=== PATIENT | female | born 1960 | race Caucasian/White ===

== ENCOUNTER 2020-01-28 12:57 | Outpatient (REF) | payer OTHER, SELFPAY ==
[2020-01-28 14:58] LABS: Alanine Aminotransferase 19 U/L (0-31); Aspartate Amino Transferase 20 U/L (5-31)
== END 2020-01-28 12:58 | disposition home or self-care (01) ==
LOC: HO.HMGCLDS 12:57
PROVIDERS: PCP Family Medicine; Visit Provider Family Medicine
DX: E78.00 Pure hypercholesterolemia, unspecified (principal); Z79.899 Other long term (current) drug therapy
CPT/HCPCS: 82550; 84450; 84460

== ENCOUNTER 2020-10-27 12:57 | Outpatient (REF) | payer OTHER, SELFPAY ==
[2020-10-27 14:47] LABS: Anion Gap 14 (12-20); Blood Urea Nitrogen 8 mg/dL (9-16); Carbon Dioxide 22 mmol/L (22-29); Chloride 105 mmol/L (96-108); Estimated Glomerular Filt Rate > 60; Potassium 3.9 mmol/L (3.3-5.1); Sodium 137 mmol/L (135-145)
== END 2020-10-27 12:58 | disposition home or self-care (01) ==
LOC: HO.HMGCLDS 12:57
PROVIDERS: PCP Family Medicine; Visit Provider Family Medicine
DX: E78.00 Pure hypercholesterolemia, unspecified (principal); I10 Essential (primary) hypertension
CPT/HCPCS: 36415; 80051; 82565; 84520

== ENCOUNTER 2021-09-19 12:40 | Outpatient (REF) | payer OTHER, SELFPAY ==
[2021-09-19 13:51] LABS: MANUAL DIFF FLAG NO
[2021-09-19 14:00] LABS: Appearance Urine CLEAR; Color Urine YELLOW; Glucose Urine UA NEG (NEG); Leukocyte Esterase Urine NEG (NEG); Nitrite Urine NEG (NEG); Specific Gravity - Urine <= 1.005 (1.005-1.025); Urine Blood TRACE (NEG); Urine Ketones NEG (NEG); Urine Protein NEG (NEG-TRACE)
[2021-09-19 14:03] LABS: Basophils Percent Auto 0.9 % (0-2); Eosinophils Absolute Auto 0.1 X10*3/uL (0.0-0.4); Eosinophils Percent Auto 2.6 % (0-4); Hematocrit 38.9 % (37.0-47.0); Hemoglobin 13.1 g/dl (12.0-16.0); Imm Gran Abs Auto 0.01 X10*3/uL (0.00-0.03); Imm Gran Pct Auto 0.2 % (0.0-0.4); Lymphocytes Percent Auto 43.3 % (20-40); Mean Corpuscular HGB Conc 33.7 g/dl (31.0-35.0); Mean Corpuscular Hemoglobin 32.3 pg (27.0-33.0); Mean Corpuscular Volume 95.8 fL (80.0-98.0); Mean Platelet Volume 10.9 fL (9.4-12.3); Monocytes Absolute Auto 0.3 X10*3/uL (0.1-1.2); Monocytes Percent Auto 7.5 % (2-11); Neutrophils Absolute Auto 2.1 x10*3/uL (2.0-8.3); Neutrophils Percent Auto 45.5 % (45-73); Platelet Count 231 X10*3/uL (160-400); Red Blood Count 4.06 X10*6/uL (4.20-5.50); Red Cell Distribution Width 12.5 % (11.0-16.0); White Blood Count 4.6 X10*3/uL (4.8-10.8)
[2021-09-19 14:14] LABS: Squamous Epithelial Cell Urine 1+ /LPF
[2021-09-19 14:15] LABS: RBC Urine 0-2 /HPF (0); WBC Urine 0 /HPF (0-4)
[2021-09-19 14:24] LABS: Alanine Aminotransferase 36 U/L (0-31); Albumin Level 4.3 g/dL (3.5-5.0); Alkaline Phosphatase 79 U/L (39-117); Amylase 30 U/L (28-100); Aspartate Amino Transferase 27 U/L (5-31); Bilirubin Direct 0.2 mg/dL (0.0-0.5); Bilirubin Total 0.5 mg/dL (0.0-1.0); Calcium 9.2 mg/dL (8.4-10.2); Lipase 14 U/L (8-78); Total Protein 6.9 g/dL (6.5-8.0)
[2021-09-19 14:48] LABS: Erythrocyte Sedimentation Rate 10 MM/HR (0-20)
== END 2021-09-19 12:41 | disposition home or self-care (01) ==
LOC: HO.10HDL 12:40
PROVIDERS: Visit Provider Family Medicine
DX: R10.13 Epigastric pain (principal); R11.2 Nausea with vomiting, unspecified; K21.9 Gastro-esophageal reflux disease without esophagitis
CPT/HCPCS: 36415; 80076; 81001; 81003; 82150; 82310; 83690; 85025; 85652

== ENCOUNTER 2021-09-20 08:22 | Outpatient (REF) | payer OTHER, SELFPAY | END 2021-09-20 08:23 | disposition home or self-care (01) | LOC: HO.10HDLNP 08:22 | PROVIDERS: Visit Provider Family Medicine | DX: R10.13 Epigastric pain (principal); R11.2 Nausea with vomiting, unspecified; K21.9 Gastro-esophageal reflux disease without esophagitis; Z11.0 Encounter for screening for intestinal infectious diseases | CPT/HCPCS: 87338 ==

== ENCOUNTER 2021-09-30 09:34 | Emergency (ER) | payer OTHER, SELFPAY ==
--- NOTE | ~2021-09-30 | CT_ITS ---
EXAMINATION: CT ABDOMEN AND PELVIS WITHOUT CONTRAST CLINICAL INFORMATION: abd pain, left flank pain COMPARISON: None TECHNIQUE: Multidetector volumetric imaging was performed from the superior aspect of the liver through the pubic symphysis. Sagittal and coronal reformatted images were obtained on the technologist's workstation. This CT examination was performed using dose optimization techniques as appropriate, variously including the following: *Automated exposure control *Adjustment of mA and/or kV according to patient size (this includes techniques or standardized protocols for targeted exams where dose is matched to indication/reason for exam; i.e. extremities or head) *Use of iterative reconstruction technique DLP: 601 mGy-cm FINDINGS: LUNG BASES: Trace pericardial fluid. Heart normal in size. The lung bases appear clear, with no evidence of inflammation or nodules. LIVER, GALLBLADDER, AND BILIARY TREE: The liver appears unremarkable in size, shape, and attenuation. No focal hepatic lesion or biliary ductal dilatation is appreciated. Unremarkable appearance of the gallbladder. PANCREAS: Unremarkable SPLEEN: Unremarkable ADRENAL GLANDS: Unremarkable KIDNEYS AND URETERS: The kidneys appear unremarkable in size, shape, and attenuation. 3 mm, nonobstructing right renal pelvic stone (image 32, series 3). No hydronephrosis, hydroureter, or other calculus seen. BLADDER: Unremarkable GASTROINTESTINAL TRACT: The small and large bowel appear unremarkable. No diverticulosis. Normal-appearing distal ileum and vermiform appendix. ABDOMINAL WALL: No significant hernia is appreciated. LYMPH NODES: No evidence of adenopathy by size criteria. VASCULAR: Unremarkable PELVIC VISCERA: Unremarkable OSSEOUS STRUCTURES: Unremarkable CT/CT abdomen pelvis wo con IMPRESSION: No acute finding.
[2021-09-30 10:02] VITALS: BP 167/98; PULSE 60; RESP 16; TEMP 35.5; O2SAT 98; BMI 25.0
[2021-09-30 10:35] LABS: Appearance Urine CLEAR; Color Urine YELLOW; Glucose Urine UA NEG (NEG); Leukocyte Esterase Urine TRACE (NEG); Nitrite Urine NEG (NEG); Specific Gravity - Urine 1.025 (1.005-1.025); UACC Culture Trigger NO; Urine Blood 1+ (NEG); Urine Ketones NEG (NEG); Urine Protein NEG (NEG-TRACE)
[2021-09-30 11:26] LABS: Squamous Epithelial Cell Urine 3+ /LPF
[2021-09-30 11:41] LABS: MANUAL DIFF FLAG NO
[2021-09-30 12:01] LABS: Basophils Absolute Auto 0.1 X10*3/uL (0.0-0.2); Basophils Percent Auto 0.9 % (0-2); Eosinophils Absolute Auto 0.1 X10*3/uL (0.0-0.4); Eosinophils Percent Auto 1.7 % (0-4); Hematocrit 39.4 % (37.0-47.0); Hemoglobin 13.1 g/dl (12.0-16.0); Imm Gran Abs Auto 0.02 X10*3/uL (0.00-0.03); Imm Gran Pct Auto 0.3 % (0.0-0.4); Lymphocytes Percent Auto 35.4 % (20-40); Mean Corpuscular HGB Conc 33.2 g/dl (31.0-35.0); Mean Corpuscular Hemoglobin 32.2 pg (27.0-33.0); Mean Corpuscular Volume 96.8 fL (80.0-98.0); Mean Platelet Volume 10.5 fL (9.4-12.3); Monocytes Absolute Auto 0.3 X10*3/uL (0.1-1.2); Monocytes Percent Auto 5.6 % (2-11); Neutrophils Absolute Auto 3.2 x10*3/uL (2.0-8.3); Neutrophils Percent Auto 56.1 % (45-73); Platelet Count 247 X10*3/uL (160-400); Red Blood Count 4.07 X10*6/uL (4.20-5.50); Red Cell Distribution Width 12.3 % (11.0-16.0); White Blood Count 5.8 X10*3/uL (4.8-10.8)
[2021-09-30 12:03] LABS: Anion Gap 12 (12-20); Blood Urea Nitrogen 7 mg/dL (9-16); Carbon Dioxide 22 mmol/L (22-29); Chloride 107 mmol/L (96-108); Creatinine Clr Calc Pharmacy 85.1; Estimated Glomerular Filt Rate > 60; Glucose Random 100 mg/dL (60-115); Lipase 11 U/L (8-78); Potassium 4.2 mmol/L (3.3-5.1); Sodium 137 mmol/L (135-145)
--- NOTE | 2021-09-30 18:04 | ED_ITS ---
HPI - Abdominal Pain General Chief Complaint: Abdominal Pain Stated Complaint: L Side Pain Time Seen by Provider: 09/30/21 13:36 Source: patient Mode of arrival: ambulatory Limitations: no limitations History of Present Illness HPI narrative: 61-year-old female presents for evaluation for left upper quadrant pain that started night. She states the pain is severe and prevents her from sleeping. She does not report fevers or chills, chest pain or pressure, palpitations, shortness of breath, pain on inspiration, nausea or vomiting, trauma or any injury. MD elicited complaint: abdominal pain Onset (ago): day(s) (3) Pain Consistency: constant and colicky Location: LUQ, L flank and groin Severity: moderate Pain scale (0-10): 8 Quality: stabbing and aching Exacerbating factors: movement Relieving factors: nothing Associated symptoms: denies other symptoms Related Data Previous Rx's Medication Instructions Recorded nitrofurantoin 100 mg PO Q12H 7 days #14 caps 09/30/21 monohydrate/macrocrystals 100 mg capsule (Macrobid) tamsulosin 0.4 mg capsule (Flomax) 0.4 mg PO DAILY 14 days #14 caps 09/30/21 Allergies Allergy/AdvReac Type Severity Reaction Status Date / Time No Known Allergies Allergy Verified 09/30/21 10:05 Review of Systems Review of Systems Constitutional: No Fever, No Chills ENT/Mouth: No sore throat Eyes: No Eye Pain, No Swelling, No Redness Cardiovascular: No Chest Pain, No SOB Respiratory: No Cough, No Sputum, No Wheezing Gastrointestinal: In a Nausea, no Vomiting, No Diarrhea, positive abdominal pain Genitourinary: No Dysuria, no urinary frequency, now Hematuria, positive Flank Pain, no hesitancy Musculoskeletal: No joint pain, No Myalgias Skin: No Skin Lesions, No rash Neuro: No Weakness, No Numbness, No Headache Psych: No Anxiety/Panic, No Depression Heme/Lymph: No Bruising, No Lymphadenopathy Endocrine: No Polyuria, No Polydipsia Yes all other systems are reviewed and are negative COUNTS INCLUDE 234 BEDS AT THE [facility] Past Medical History Attestation statement: The following information was validated with the patient. Source: old records reviewed Social History Social History Alcohol intake: current Alcohol intake frequency: a few times a week Alcohol type: beer and wine Patient Tobacco Use Status: Never used Tobacco Use of substances other than those prescribed or required for medical reasons: No Advance Directives: No Advance Directives Information Provided: No Physical Exam ED Vital Signs: Vital Signs - 24 hr 09/30/21 10:02 Temperature 95.9 F L Pulse Rate 60 Respiratory Rate 16 Blood Pressure 167/98 H Pulse Oximetry 98 Oxygen Delivery Method Room Air BMI result Body Mass Index 25.0 Appearance: Alert. Oriented X3. Moderate distress. Eyes: Pupils equal, round and reactive to light. Sclera nonicteric. ENT: Pharynx normal. Neck: Normal inspection. Neck supple. CVS: Normal heart rate and rhythm. Pulses normal. Respiratory: No respiratory distress. Breath sounds normal. Abdomen: Soft and left upper quadrant tenderness to palpation, left CVA tenderness noted. Skin: Skin warm and dry. Normal skin color. Normal skin turgor. Extremities: Moves all extremities against resistance. Neuro: No motor deficit. No sensory deficit. Cranial nerves 2-12 intact. Course Course Course Narrative: 61-year-old female presents for left upper quadrant abdominal pain. Has been in the emergency department waiting room for 7 hours. Labs and urinalysis drawn, positive for leukocyte esterase but no other concerning findings with lab values. States to have left upper quadrant, left-sided CVA tenderness, and a left groin pain. Will order CT scan of abdomen pelvis. Vital signs are stable within normal limits. Wells PE score 0. 18:15 this INFORMATICS MANAGER started IV to left AC. 1 L infusing by this INFORMATICS MANAGER. Order for Zofran, morphine and Toradol. 19:01 CT scan unremarkable for acute findings. Does show a kidney stone. will give flomax. Will treat with Macrobid for UTI. Patient verbalized understanding of and agrees plan care discharge home. Verbalized understanding of signs and symptoms indicating need for emergent intervention. MDM - Abdominal Pain Differential Diagnosis Differential diagnosis: Likely abdominal pain, calculus of kidney, constipation and diverticulitis Medical Records Attestation: I reviewed the patient's medical records. Lab Data Attestation: I reviewed the patient's lab results. Result diagrams: 09/30/21 11:37 09/30/21 11:37 Labs: Lab Results 09/30/21 09/30/21 09/30/21 Range/Units 10:17 11:37 11:37 WBC 5.8 (4.8-10.8) X10*3/uL RBC 4.07 L (4.20-5.50) X10*6/uL Hgb 13.1 (12.0-16.0) g/dl Hct 39.4 (37.0-47.0) % MCV 96.8 (80.0-98.0) fL MCH 32.2 (27.0-33.0) pg MCHC 33.2 (31.0-35.0) g/dl RDW 12.3 (11.0-16.0) % Plt Count 247 (160-400) X10*3/uL MPV 10.5 (9.4-12.3) fL Immature Gran % (Auto) 0.3 (0.0-0.4) % Neut % (Auto) 56.1 (45-73) % Lymph % (Auto) 35.4 (20-40) % Swift % (Auto) 5.6 (2-11) % Eos % (Auto) 1.7 (0-4) % Baso % (Auto) 0.9 (0-2) % Lymph # (Auto) 2.0 (1.2-4.9) X10*3/uL Swift # (Auto) 0.3 (0.1-1.2) X10*3/uL Eos # (Auto) 0.1 (0.0-0.4) X10*3/uL Baso # (Auto) 0.1 (0.0-0.2) X10*3/uL Abs Immat Gran (auto) 0.02 (0.00-0.03) X10*3/uL Absolute Neuts (auto) 3.2 (2.0-8.3) x10*3/uL Absolute Nucleated RBC 0.000 (0.0-0.012) X10*3/uL Nucleated RBC % (auto) 0.0 (0.0-0.2) /100WBC Sodium 137 (135-145) mmol/L Potassium 4.2 (3.3-5.1) mmol/L Chloride 107 (96-108) mmol/L Carbon Dioxide 22 (22-29) mmol/L Anion Gap 12 (12-20) BUN 7 L (9-16) mg/dL Creatinine 0.64 (0.5-1.4) mg/dL Estim Creat Clear Calc 85.1 Estimated GFR > 60 Random Glucose 100 (60-115) mg/dL Calcium 9.0 (8.4-10.2) mg/dL Lipase 11 (8-78) U/L Urine Color YELLOW Urine Appearance CLEAR Urine pH 6.0 (5.0-8.0) Ur Specific Heber 1.025 (1.005-1.025) Urine Protein NEG (NEG-TRACE) MG/DL Urine Glucose (UA) NEG (NEG) MG/DL Urine Ketones NEG (NEG) MG/DL Urine Blood 1+ H (NEG) Urine Nitrite NEG (NEG) Ur Leukocyte Esterase TRACE H (NEG) Urine RBC 1-4 (0) /HPF Urine WBC 1-4 (0-4) /HPF Ur Squamous Epith Cells 3+ /LPF Urine Bacteria NONE /LPF Imaging Data CT abdomen pelvis: Attestation: I personally reviewed and interpreted this imaging study as follows: Radiologist's impression: EXAMINATION: CT ABDOMEN AND PELVIS WITHOUT CONTRAST? CLINICAL INFORMATION: abd pain, left flank pain? COMPARISON: None? TECHNIQUE: Multidetector volumetric imaging was performed from the superior aspect of the liver through the pubic symphysis. Sagittal and coronal reformatted images were obtained on the technologist's workstation.? This CT examination was performed using dose optimization techniques as appropriate, variously including the following: *Automated exposure control *Adjustment of mA and/or kV according to patient size (this includes techniques or standardized protocols for targeted exams where dose is matched to indication/reason for exam; i.e. extremities or head) *Use of iterative reconstruction technique DLP: 601 mGy-cm FINDINGS: LUNG BASES: Trace pericardial fluid. Heart normal in size. The lung bases appear clear, with no evidence of inflammation or nodules.? LIVER, GALLBLADDER, AND BILIARY TREE: The liver appears unremarkable in size, shape, and attenuation. No focal hepatic lesion or biliary ductal dilatation is appreciated. Unremarkable appearance of the gallbladder. PANCREAS: Unremarkable? SPLEEN: Unremarkable? ADRENAL GLANDS: Unremarkable? KIDNEYS AND URETERS: The kidneys appear unremarkable in size, shape, and attenuation. 3 mm, nonobstructing right renal pelvic stone (image 32, series 3). No hydronephrosis, hydroureter, or other calculus seen. ? BLADDER: Unremarkable? GASTROINTESTINAL TRACT: The small and large bowel appear unremarkable. No diverticulosis. Normal-appearing distal ileum and vermiform appendix.? ABDOMINAL WALL: No significant hernia is appreciated.? LYMPH NODES: No evidence of adenopathy by size criteria. VASCULAR: Unremarkable PELVIC VISCERA: Unremarkable OSSEOUS STRUCTURES: Unremarkable? CT/CT abdomen pelvis wo con IMPRESSION: ? No acute finding. Discharge Plan Discharge Clinical Impression: Abdominal pain, Calculus of kidney, UTI (urinary tract infection) Patient Disposition: Home, Self-Care Instructions: Kidney Stones (ED), Urinary Tract Infection in Women (ED), Abdominal Pain (ED), Flank Pain (ED) Additional Instructions: You were evaluated for abdominal pain and left flank pain. CT scan of abdomen shows kidney stone. Please take Flomax 0.4 mg daily for the next 14 days. Urinalysis is positive for UTI. Please take Macrobid 100 mg twice a day for the next 7 days. Drink plenty of fluids. Follow-up with primary care provider as needed. Thank you for choosing this emergency department for evaluation. Please follow-up with primary care physician as needed. Return to the emergency department for any new, concerning, or worsening symptoms. Prescriptions: New tamsulosin [Flomax] 0.4 mg capsule 0.4 mg PO DAILY 14 Days Qty: 14 0RF nitrofurantoin monohyd/m-cryst [Macrobid] 100 mg capsule 100 mg PO Q12H 7 Days Qty: 14 0RF Rx Instructions: must administer with a meal/food
[2021-09-30] MEDS: ondansetron HCL 4 MG/2 ML VIAL IVPUSH (19:18)
[2021-09-30] MEDS: Ketorolac Tromethamine 30 MG/ML VIAL IVPUSH (19:18)
[2021-09-30] MEDS: Morphine Sulfate 2 MG/ML CARTRIDGE IVPUSH (19:18)
[2021-09-30] MEDS: Nitrofurantoin Monohyd/M-Cryst 100 MG CAPSULE PO (19:19)
[2021-09-30] MEDS: 0.9 % Sodium Chloride 1,000 ML 999 ML IVCONT (19:26)
== END 2021-09-30 19:58 | disposition home or self-care (01) ==
PROVIDERS: Emergency Provider Emergency Medicine; PCP Family Medicine
DX: R10.12 Left upper quadrant pain (principal); N20.0 Calculus of kidney; N39.0 Urinary tract infection, site not specified
CPT/HCPCS: 36415; 74176; 80048; 81001; 83690; 85025; 96361; 96374; 96375; 99284; J1885; J2270; J2405

== ENCOUNTER 2021-10-17 10:49 | Outpatient (REF) | payer OTHER, SELFPAY ==
--- NOTE | ~2021-10-17 | XR_ITS ---
EXAMINATION: XR THORACIC SPINE CLINICAL INFORMATION: Pain COMPARISON: None TECHNIQUE: 3 views of the thoracic spine were obtained. FINDINGS: There is mild curvature of the proximal thoracic spine to the right. Bone alignment is otherwise normal. There is mild degenerative spondylosis and degenerative disc disease of the mid and lower thoracic spine. Paraspinal soft tissues are normal. XR/XR thoracic spine 3V IMPRESSION: Mild degenerative changes.
== END 2021-10-17 10:50 | disposition home or self-care (01) ==
LOC: HO.XRAY 10:49
PROVIDERS: PCP Family Medicine; Visit Provider Family Medicine
DX: M54.6 Pain in thoracic spine (principal)
CPT/HCPCS: 72072

== ENCOUNTER 2022-02-12 06:24 | Day surgery (SDC) | payer OTHER, SELFPAY ==
--- NOTE | 2022-02-09 12:31 | HO.ANESPROP2 ---
Documented by User: Mirta Leonardo NP 02/09/22 12:32 HPI - Anesthesia Eval Consult details Narrative: 61yo F for Upper Endoscopy and Colonoscopy [facility] Past Medical History Medical History GERD (gastroesophageal reflux disease) Family History Family History Mother HTN (hypertension) High cholesterol Father HTN (hypertension) High cholesterol Colon cancer, Onset Age: 65 Social History Social History Alcohol intake: current Alcohol intake frequency: a few times a week Alcohol type: beer and wine Patient Tobacco Use Status: Former Tobacco user Tobacco use type: Cigarette Cigarettes Per Day: 6 Years Smoked: 40 Use of substances other than those prescribed or required for medical reasons: No Substance Use Type: Marijuana Substance Use Frequency: Occasionally Last Used Substance: Unknown Are you DNR?: No Advance Directives: No Advance Directives Information Provided: Yes Meds Allergies Allergy/AdvReac Type Severity Reaction Status Date / Time No Known Allergies Allergy Verified 10/31/21 12:34 Home Medications Medication Instructions Recorded Confirmed Last Taken Type fluticasone propionate 50 1 spray intranasal DAILY 10/31/21 02/12/22 Unknown History mcg/actuation nasal spray,suspension gabapentin 300 mg capsule 1 cap PO BEDTIME 02/12/22 02/12/22 Unknown History omeprazole 40 mg capsule,delayed 40 mg PO DAILY 02/12/22 02/12/22 Unknown History release tramadol 50 mg tablet 1 tab PO Q8H PRN severe pain 02/12/22 02/12/22 Unknown History Exam Exam Date and Time: February 09, 2022 1231 Pertinent Lab Results Pertinent Lab Results: Laboratory Tests 09/30/21 09/30/21 11:37 11:37 WBC 5.8 Hgb 13.1 Hct 39.4 Plt Count 247 Sodium 137 Potassium 4.2 Chloride 107 Carbon Dioxide 22 BUN 7 L Creatinine 0.64 Assessment and Plan Assessment Anesthesia Assessment: Chart Reviewed Documented by User: Marlen Coyne MD 02/12/22 07:30 PMF Active Problems Active Problems: Intermittent left groin pain Snores. No sleep study Past Medical History Medical History GERD (gastroesophageal reflux disease) Family History Family History Mother HTN (hypertension) High cholesterol Father HTN (hypertension) High cholesterol Colon cancer, Onset Age: 65 Family history of problems with anesthesia: No Surgical History History of Problems with Anesthesia: No Social History Social History Alcohol intake: current Alcohol intake frequency: a few times a week Alcohol type: beer and wine Patient Tobacco Use Status: Former Tobacco user Tobacco use type: Cigarette Cigarettes Per Day: 6 Years Smoked: 40 Use of substances other than those prescribed or required for medical reasons: No Substance Use Type: Marijuana Substance Use Frequency: Occasionally Last Used Substance: Unknown Are you DNR?: No Advance Directives: No Advance Directives Information Provided: Yes Meds Allergies Allergy/AdvReac Type Severity Reaction Status Date / Time No Known Allergies Allergy Verified 10/31/21 12:34 Home Medications Medication Instructions Recorded Confirmed Last Taken Type fluticasone propionate 50 1 spray intranasal DAILY 10/31/21 02/12/22 Unknown History mcg/actuation nasal spray,suspension gabapentin 300 mg capsule 1 cap PO BEDTIME 02/12/22 02/12/22 Unknown History omeprazole 40 mg capsule,delayed 40 mg PO DAILY 02/12/22 02/12/22 Unknown History release tramadol 50 mg tablet 1 tab PO Q8H PRN severe pain 02/12/22 02/12/22 Unknown History Exam Height,Weight and Vital Signs: Height 5 ft 5 in Weight 70.307 kg Vital Signs Temp Pulse Resp BP Pulse Ox O2 Del Method 02/12/22 06:40 96.7 F L 67 16 124/89 99 Room Air Airway TM Dist: >3cm Neck ROM: Full Loose/Missing/Broken Teeth: No (Caps intact. Denies broken or loose teeth) Heart: RRR Lungs: CTAB Assessment and Plan Assessment Anesthesia Assessment: Anesthesia Plan Discussed Final Anesthetic Review Family History of Problems with Anesthesia: No History of Problems with Anesthesia: No NPO: Yes ASA Class: II Final Preanesthetic Review: No Changes in Pt Med Stat, Meds/Allgs Chart Reviewed, Consent Obtained/Reviewed and Anes Risks/Benef Reviewed Patient Risk: Low Procedure Risk: Low Assessment/Block/Sedation in SS: Assess/Block/Sedation-SS Anesthetic Plan Anesthetic Plan: MAC: Disposition: Standard PACU
[2022-02-12 06:29] VITALS: BMI 25.7
[2022-02-12 06:40] VITALS: BP 124/89; PULSE 67; RESP 16; TEMP 35.9; O2SAT 99
[2022-02-12] MEDS: Lactated Ringers 1,000 ML 100 ML IVCONT (07:02)
--- NOTE | 2022-02-12 07:27 | MHC.SHP ---
Pre-Procedural Eval Section A Date of Service: 02/12/22 Section B Chief Complaint: LUQ pain, abnormal imaging, personal hx of polyps Details of Present Illness: 61y.o F with intermittent LUQ pain ongoing x few months. UGIS 10/2021: thickened rugal folds throughout the stomach. Pt also with personal hx of polyps, last colo 2016. Father: CRC diagnosed at age >60. Here for EGD/colo Relevant Family History (Specify if Yes): Yes Present Medications: see Short Stay Collaborative assessment History of Previous Operations: No relevant previous surgery Allergies: Allergies Allergy/AdvReac Type Severity Reaction Status Date / Time No Known Allergies Allergy Verified 10/31/21 12:34 Review of Systems Review of Systems Comment: 10 point ROS as above Exam Exam Comment: Gen appear: No acute distress, well nourished HEENT: no icterus Chest: No overt resp distress Abd: soft, nontender, nondistended Psych: Stable affect, answering questions appropriately Neuro: A/Ox3 noted to move all extremities spontaneously Ext: no peripheral edema Plan Diagnosis/Plan: Unchanged I have reviewed the history and physical and performed a pertinent physical examination on my patient. No changes have occurred unless specified.
--- NOTE | 2022-02-12 08:30 | P.OP_ITS ---
Operative Note Operative Note Date of Service: 02/12/22 Narrative: Procedure: Esophagogastroduodenoscopy and colonoscopy Endoscopist: Lola Ingram MD Indication: Abnormal imaging, LUQ pain, personal hx of polyps Anesthesia Provider: Eli Martinez CRNA Anesthesia Type: MAC Instrument: Olympus GIF-H190 and [id number]-[id number] ?? EGD Procedure:?? The procedure, indications, preparation and potential complications were reviewed with the patient, who indicated understanding and gave written informed consent to proceed. A physical exam was performed. The endoscope was introduced through the mouth, and advanced to the second part of duodenum. The mucosa was carefully examined on slow withdrawal of the endoscope. The patient tolerated the procedure well. There were no immediate complications.? ? EGD Findings:? * Esophagus:? Normal mucosa noted in the entire esophagus. The Z line was at 39 cm. * Stomach:? Normal mucosa was noted in the stomach with prominent gastric folds in fundus and body. The stomach distended with insufflation adequately. Cold forceps biopsies were taken from antrum, body and fundus. Cheesy whitish exudate was noted each time a forceps biopsy was performed. * Duodenum:? Normal mucosa was noted in the whole of the examined duodenum. Colonoscopy Procedure: The patient was then turned for the colonoscopy. A digital rectal exam was performed which was abnormal due to finding of hemorrhoids. The colonoscope was then inserted through the anus and advanced through the colon to the cecum at 75 cm,and terminal ileum. Appendiceal orifice and ileocecal valve were identified. Mucosa was carefully examined under high definition white light as the instrument was slowly withdrawn in a retrograde panoramic fashion. Retroflexion was performed in rectum. The procedure was not difficult. There were no immediate obvious complications. The quality of the prep was BBPS: 2+3+3 = adequate Withdrawal time 15 minutes. Limitations: No limitations. Colonoscopy Findings: Mucosa: Normal to cecum and terminal ileum. Protruding lesions: * 1 sessile polyp of size 5 mm in sigmoid colon. Cold snare polypectomy was performed. The polyp was completely removed and retrieved. * Large external and small internal hemorrhoids stigmata of recent bleeding. ? Impressions:? * Normal esophagus (biopsy) * ? Hyperplastic gastropathy (biopsy) * Normal duodenum (biopsy) ?? Recommendations:?? * Follow biopsy results. Our office will call or send a letter with results within 7-10 days. * If H pylori +, patient will be prescribed eradication therapy followed by test of cure. * Avoid NSAIDs. * Repeat colonoscopy in 7-10 years for CRC screening. Above has been reviewed with the patient. Relevant educational hand outs were provided at discharge.
[2022-02-12 08:31] VITALS: BP 132/84; PULSE 73; RESP 16; TEMP 36.1; O2SAT 98
[2022-02-12 08:46] VITALS: BP 145/79; PULSE 68; RESP 16; TEMP 36.3; O2SAT 99
[2022-02-12 09:01] VITALS: BP 145/79; PULSE 69; RESP 18; TEMP 36.4; O2SAT 97
== END 2022-02-12 09:44 | disposition home or self-care (01) ==
PROVIDERS: PCP Family Medicine; Visit Provider Internal Medicine
PROC: (CPT 45385; principal; 2022-02-12 07:30)
DX: R10.12 Left upper quadrant pain (principal); Z86.010 Personal history of colon polyps; Z80.0 Family history of malignant neoplasm of digestive organs; K63.5 Polyp of colon; K64.8 Other hemorrhoids; K64.4 Residual hemorrhoidal skin tags; K21.9 Gastro-esophageal reflux disease without esophagitis; K31.7 Polyp of stomach and duodenum; Z79.51 Long term (current) use of inhaled steroids; Z79.899 Other long term (current) drug therapy; F12.90 Cannabis use, unspecified, uncomplicated; Z87.891 Personal history of nicotine dependence
CPT/HCPCS: 45385; 43239; 88305; 88342; J2250

== ENCOUNTER → 2022-03-13 14:32 | Outpatient (BNVA) | payer OTHER, SELFPAY | PROVIDERS: PCP Family Medicine; Visit Provider Internal Medicine | DX: Z13.89 Encounter for screening for other disorder (principal) ==

== ENCOUNTER 2023-01-15 13:30 | Outpatient (REF) | payer OTHER, SELFPAY ==
--- NOTE | ~2023-01-15 | XR_ITS ---
EXAMINATION: XR LUMBOSACRAL SPINE CLINICAL INFORMATION: Low back COMPARISON: None available. TECHNIQUE: Three views of the lumbosacral spine. FINDINGS: Vertebral bodies are well aligned there is narrowing of L4-L5 and L5-S1 intervertebral disc spaces and marginal spurring of endplates of L5, L4, L3. There is facets arthropathy at the level of L4-L5 and L5-S1. Sacroiliac joints unremarkable. Soft tissues are normal. XR/XR lumbar spine 2-3V IMPRESSION: Degenerative changes in lumbar spine as described.
== END 2023-01-15 13:31 | disposition home or self-care (01) ==
LOC: HO.HMGCX 13:30
PROVIDERS: PCP Family Medicine; Visit Provider Family Medicine
DX: M54.9 Dorsalgia, unspecified (principal)
CPT/HCPCS: 72100

== ENCOUNTER 2024-01-06 11:49 | Outpatient (REF) | payer OTHER, SELFPAY ==
[2024-01-06 13:44] LABS: MANUAL DIFF FLAG NO
[2024-01-06 13:59] LABS: Basophils Absolute Auto 0.1 X10*3/uL (0.0-0.2); Basophils Percent Auto 0.8 % (0-2); Eosinophils Absolute Auto 0.1 X10*3/uL (0.0-0.4); Eosinophils Percent Auto 2.2 % (0-4); Hemoglobin 13.1 g/dl (12.0-16.0); Imm Gran Abs Auto 0.04 X10*3/uL (0.00-0.03); Imm Gran Pct Auto 0.6 % (0.0-0.4); Lymphocytes Absolute Auto 2.2 X10*3/uL (1.2-4.9); Lymphocytes Percent Auto 33.9 % (20-40); Mean Corpuscular HGB Conc 33.6 g/dl (31.0-35.0); Mean Corpuscular Hemoglobin 33.1 pg (27.0-33.0); Mean Corpuscular Volume 98.5 fL (80.0-98.0); Mean Platelet Volume 10.9 fL (9.4-12.3); Monocytes Absolute Auto 0.4 X10*3/uL (0.1-1.2); Neutrophils Absolute Auto 3.7 x10*3/uL (2.0-8.3); Neutrophils Percent Auto 56.5 % (45-73); Platelet Count 237 X10*3/uL (160-400); Red Blood Count 3.96 X10*6/uL (4.20-5.50); Red Cell Distribution Width 12.2 % (11.0-16.0); White Blood Count 6.5 X10*3/uL (4.8-10.8)
[2024-01-06 14:31] LABS: Alanine Aminotransferase 34 U/L (0-31); Alkaline Phosphatase 82 U/L (39-117); Anion Gap 12 (12-20); Aspartate Amino Transferase 71 U/L (5-31); Bilirubin Total 0.4 mg/dL (0.0-1.0); Blood Urea Nitrogen 12 mg/dL (9-16); Calcium 9.5 mg/dL (8.4-10.2); Carbon Dioxide 23 mmol/L (22-29); Chloride 107 mmol/L (96-108); Estimated Glomerular Filt Rate > 60; Glucose Random 91 mg/dL (60-115); Potassium 3.9 mmol/L (3.3-5.1); Sodium 138 mmol/L (135-145); Total Protein 6.7 g/dL (6.5-8.0)
== END 2024-01-06 11:50 | disposition home or self-care (01) ==
LOC: HO.10HDL 11:49
PROVIDERS: Visit Provider Family Medicine
DX: G62.9 Polyneuropathy, unspecified (principal)
CPT/HCPCS: 36415; 80053; 85025

== ENCOUNTER 2024-07-14 13:13 | Outpatient (REF) | payer BC, SELFPAY ==
--- OUTSIDE RECORDS SUMMARY | 2024-07-14 14:29 | XMS_ITS | Clinical Summary ---
Author Organization [facility] [address] [place] [address] Address [address], [place] Phone Care Team Providers Care Credit Manager Name Role Phone Gilmer Casillas MD Primary Care Provider [phone] Encounters Date Type Department Care Team Description 05/22/2024 8:35 AM EDT - 05/22/2024 11:59 PM EDT Hospital Encounter Radiology Department - [address] [phone] Mammographic microcalcification found on diagnostic imaging of breast Discharge Disposition: Home or Self Care from Last 3 Months Surgical History Surgery Date Site/Laterality Comments WISDOM TOOTH EXTRACTION PROCEDURE: HISTORICAL WISDOM TEETH EXTRACTION Medical History Medical History Date Comments Allergic rhinitis DX:Allergic rh initis; COMMENT: Year round Esophageal reflux DX:Esophageal reflux Family History Medical History Relation Name Comments Bladder Cancer Brother 1 Other: Other Brother 2 Alzheimer's disease Father cause of , age 89 yo Colon cancer Father Breast cancer Other mat couisn dx 60 Other: Other Sister 1 Ovarian cancer Neg Hx Pancreatic cancer Neg Hx Prostate cancer Neg Hx Uterine cancer Neg Hx Relation Name Status Comments Brother 1 Alive Bladder cancer still alive Brother 2 Alive Father colon cancer pradhan rvivor Mother Alive Other mat couisn dx 60 Alive Sister 1 Alive Sister 2 Alive 3 sisters alive and well Sister 3 Alive Social History Tobacco Use Types Packs/Day Years Used Date Smoking Tobacco: Never Smokeless Tobacco: Never Alcohol Use Standard Drinks/Week Comments Yes 0 (1 standard drink = 0.6 oz pur e alcohol) Comments Unknown Sex and Gender Information Value Date Recorded Sex Assigned at Not on file Legal Sex Female 7:55 AM EST Gender Identity Not on file Sexual Orientation Not on file Obstetrics History Para Term AB IAB SAB Ectopic Multiple Livin g Live Births 2 2 2 2 Date Outcome GA Total Labor Labor/2nd/3rd Weight Sex Type Anes PTL Mariola A1 A5 Name Clin Term Term Last Filed Vital Signs Vital Sign Reading Time Taken Comments Blood Pressure 139/96 12/16/2023 8:53 AM EDT Pulse 83 12/16/2023 8:53 AM EDT Temperature - - Respiratory Rate - - Oxygen Saturation - - Inhaled Oxygen Concentration - - Weight 70.9 kg (156 lb 3.2 oz) 12/16/2023 8:53 A M EDT Height 165.1 cm (5' 5 ) 12/16/2023 8:53 AM EDT Body Mass Index 25.99 12/16/2023 8:53 AM EDT Plan of Treatment Health Maintenance Due Date Last Done Comments DTaP,Tdap,and Td Vaccines (1 - Tdap) 1981 Cervical Cancer Screening: HPV 1983 Pneumococcal Vaccine: 50+ Years (1 of 1 - PCV) 2012 Cholesterol Screening (Lipid Panel) 02/17/2022 Colorectal Cancer Screening: Colonoscopy 02/17/2022 Depression Screening 02/17/2022 HIV Screening 02/17/2022 Hepatitis C Screening 02/17/2022 Social Influencers of Health Screening 02/17/2022 COVID-19 Vaccine ( season) 2023 03/29/2021, 05/11/2020, 04/20/2020 Breast Cancer Screening 05/22/2026 05/23/19, 12/13/2023, 12/13/2023, Additional history exists RSV Immunization Adult Patients (1 - 1-dose 75+ series) 2037 Influenza Vaccine Completed 10/18/2023, , 01/25/2018 Zoster Vaccines Completed 01/11/2024, 10/18/2023 HIB Vaccines Aged Out No longer eligi ble based on patient's age to complete this topic HPV Vaccines Aged Out No longer eligi ble based on patient's age to complete this topic Hepatitis A Vaccines Aged Out No long er eligible based on patient's age to complete this topic Hepatitis B Vaccines Aged Out No long er eligible based on patient's age to complete this topic IPV Vaccines Aged Out No longer eligi ble based on patient's age to complete this topic MMR Vaccines Aged Out No longer eligi ble based on patient's age to complete this topic Meningococcal ACWY Vaccine Aged Out N o longer eligible based on patient's age to complete this topic Meningococcal B Vaccine Aged Out No l onger eligible based on patient's age to complete this topic Pneumococcal Vaccine: Pediatrics (0 to 5 Years) and At-Risk Patients (6 to 64 Years) Aged Out No longer eligible based on patient's age to complete this topic RSV Immunization Patients Under 20 months Aged Out No longer eligible based on patient's age to complete this topic Varicella Vaccines Aged Out No longer eligible based on patient's age to complete this topic Procedures Procedure Name Priority Date/Time Associated Diagnosis Comments MG MAMMO DIGITAL DIAGNOSTIC W [facility]IS BILAT Routine 05/22/2024 8:52 AM EDT Mammographic microcalcification found on diagnostic imaging of breast from Last 3 Months Results * MG Mammo Digital Diagnostic w [facility]is bilat (05/22/2024 8:52 AM EDT) Anatomical Region Laterality Modality Breast Bilateral Mammography 05/22/2024 8:59 AM EDT Impressions 05/22/2024 9:04 AM EDT RIGHT BREAST: Grouped calcifications in the lower outer quadrant, similar to June 2023. ??Probably benign. ??A 12 month follow-up mammogram is recommended with standard views and spot magnified compression views. LEFT BREAST: Negative, no evidence of malignancy. Normal interval follow-up is recommended in 12 months. Findings and recommendations were conveyed to the patient via seating and mobility technologist. ?? BREAST DENSITY: C - The breasts are heterogeneously dense which may obscure small masses. ?? BI-RADS CATEGORY: 3 - PROBABLY BENIGN RECOMMENDATION: Mammography: Diagnostic bilateral mammogram recommended in 1 year. Mammo Location: [facility], [address] [place] [address], [phone], . -------- FINAL REPORT -------- Dictated By: Lon Tate Dictated Date: 05/22/2024 08:59 ET Assigned Physician: Lon Tate Reviewed and Electronically Signed By: oLn Tate Signed Date: 05/22/2024 09:04 ET Workstation ID: [id number] Transcribed By: Self Edit Transcribed Date: 05/22/2024 08:59 ET Narrative 05/22/2024 9:04 AM EDT HISTORY: 2nd six-month follow-up of right breast calcifications STUDY: Bilateral diagnostic mammography with tomosynthesis and CAD TECHNIQUE: Bilateral digital diagnostic mammography is obtained and read in conjunction with computer-aided detection. ??Tomosynthesis as well as 2-D C view imaging were obtained. Spot magnified compression views of the right breast calcifications were also obtained. COMPARISON: Comparison made to multiple prior, most recent December 13, 2023, and most remote January 06, 2014. RIGHT BREAST: ??Previously described grouped calcifications in the lower outer quadrant are better seen on today's magnified spot compression view in MLO 90 degrees at about 2 cm from the nipple; they are similar to prior spot magnified compression views from December and June 2023. No significant masses, new calcifications or other abnormalities are seen. LEFT BREAST: No significant masses, suspicious calcifications or other abnormalities are seen. Procedure Note Lon Tate MD - 05/22/2024 HISTORY: 2nd six-month follow-up of right breast calcifications STUDY: Bilateral diagnostic mammography with tomosynthesis and CAD TECHNIQUE: Bilateral digital diagnostic mammography is obtained and readin conjunction with computer-aided detection. Tomosynthesis as well as2-D C view imaging were obtained. Spot magnified compression views of theright breast calcifications were also obtained. COMPARISON: Comparison made to multiple prior, most recent December, and most remote January 06, 2014. RIGHT BREAST: Previously described grouped calcifications in the lowerouter quadrant are better seen on today's magnified spot compression viewin MLO 90 degrees at about 2 cm from the nipple; they are similar to priorspot magnified compression views from December and June 2023. Nosignificant masses, new calcifications or other abnormalities are seen. LEFT BREAST: No significant masses, suspicious calcifications or otherabnormalities are seen. IMPRESSION: RIGHT BREAST: Grouped calcifications in the lower outer quadrant, similarto June 2023. Probably benign. A 12 month follow-up mammogram isrecommended with standard views and spot magnified compression views. LEFT BREAST: Negative, no evidence of malignancy. Normal intervalfollow-up is recommended in 12 months. Findings and recommendations were conveyed to the patient via mammographytechnologist. BREAST DENSITY: C - The breasts are heterogeneously dense which mayobscure small masses. BI-RADS CATEGORY: 3 - PROBABLY BENIGN RECOMMENDATION: Mammography: Diagnostic bilateral mammogram recommended in 1 year. Mammo Location: [facility], [address] [place] [address], [id number], . -------- FINAL REPORT -------- Dictated By: Lon Tate Dictated Date: 05/22/2024 08:59 ET Assigned Physician: Lon Tate Reviewed and Electronically Signed By: Lon Tate Signed Date: 05/22/2024 09:04 ET Workstation ID: [id number] Transcribed By: Self Edit Transcribed Date: 05/22/2024 08:59 ET Gilmer Casillas MD IMG BI PROCEDURES Final Result from Last 3 Months Insurance [facility] Care Teams Credit Manager Relationship Specialty Start Date End Date Gilmer Casillas MD [address] [place] [address] [place] [address] PCP - General Internal Medicine 09/16/13
[2024-07-14 18:31] LABS: Alanine Aminotransferase 26 U/L (0-31); Albumin Level 4.3 g/dL (3.5-5.0); Alkaline Phosphatase 75 U/L (39-117); Aspartate Amino Transferase 29 U/L (5-31); Bilirubin Direct 0.1 mg/dL (0.0-0.5); Bilirubin Total 0.5 mg/dL (0.0-1.0); Total Protein 6.8 g/dL (6.5-8.0)
[2024-07-21 14:53] LABS: FIB-ALT 20 U/L (6-29); FIB-Alpha-2-Macroglobulin 271 mg/dL (106-279); FIB-Apolipoprotein A1 224 mg/dL (101-198); FIB-GGT 51 U/L (3-65); FIB-Haptoglobin 161 mg/dL (43-212); FIB-Total Bilirubin 0.5 mg/dL (0.2-1.2); Liver Fibrosis Score 0.19; Liver Fibrosis Stage F0; Nec Inflam Act Grade A0; Nec Inflam Act Score 0.07; Reference ID 5482497
== END 2024-07-14 13:14 | disposition home or self-care (01) ==
LOC: HO.HMGCLDS 13:13
PROVIDERS: PCP Family Medicine; Visit Provider Family Medicine
DX: R74.01 Elevation of levels of liver transaminase levels (principal)
CPT/HCPCS: 36415; 80076; 81596

== ENCOUNTER 2024-10-29 11:42 | Outpatient (AMB) | payer BC, SELFPAY ==
--- NOTE | 2024-10-29 11:44 | MHC.OFFWIV ---
Intake Vital Signs 10/29/24 11:48 Height 5 ft 5 in Weight 161 lb BMI 26.8 BP 116/72 Blood Pressure Location Rt brachial Position Sitting Respiration 17 Pulse 77 Pulse Source Pulse Oximeter Temp 98.4 F Temp Source Oral Pulse Oximetry (%) 98 Oxygen Delivery Method Room Air Intake Visit Reasons: EP-rt ankle bug bite Intake Note: bug bite right ankle oozing Patient Tobacco Use Status: Former Tobacco user Allergies No Known Allergies Allergy (Verified 10/29/24 11:44) Do you need a note to return to daycare/school/sports/work: No HPI HPI Comments History of Present Illness Details History of Present Illness - The patient is a 64-year-old female presenting with a persistent bug bite on the leg that has not resolved over two weeks. - The bug bite occurred two weeks ago while the patient was in high grass, and the exact cause of the bite is unknown. - The patient describes the bite as extremely painful at the time of occurrence. - The affected area is tender, slightly red, and warm. - The patient has been applying hydrogen peroxide, rubbing alcohol, and Neosporin to the area. - The patient is concerned about the potential for a yeast infection due to antibiotic use, as she has experienced them in the past when taking antibiotics. Physical Exam General: Cooperative, healthy appearing, comfortable, no acute distress and well developed Orientation: Patient oriented x3 Limitations: No limitations Head: Normal to inspection Ears: Hearing grossly normal bilaterally Nose: Normal External nose present Face and sinus: Normal facial exam Eyes: Appearance normal, both eyes and all related structures Neck: Normal visual inspection and Yes full ROM Respiratory: Normal respiratory effort and able to speak in complete sentences. Skin: right LE, posterior has 1.25cm round abrasion with surrounding erythema, clear drainage and warmth. Neuro: Patient oriented x3 Extremities: Normal to inspection [facility] Medical History (Updated 10/29/24 @ 11:59 by Elsa Andrea PA-C) GERD (gastroesophageal reflux disease) Surgical History (Updated 03/13/22 @ 14:35 by MAGAN Gibbs) Hx of colonoscopy History of esophagogastroduodenoscopy (EGD) Family History Mother HTN (hypertension) High cholesterol Father HTN (hypertension) High cholesterol Colon cancer, Onset Age: 65 Social History Alcohol intake: current Alcohol intake frequency: a few times a week Alcohol type: beer and wine Patient Tobacco Use Status: Former Tobacco user Tobacco use type: Cigarette Cigarettes Per Day: 6 Years Smoked: 40 Substance Use Type: Marijuana Review of Systems Const All systems reviewed & are unremarkable except as noted in HPI and below Physical Exam Vital Signs: Last Vital Signs Temp 98.4 F 10/29/24 11:48 Pulse 77 10/29/24 11:48 Resp 17 10/29/24 11:48 BP 116/72 10/29/24 11:48 Pulse Ox 98 10/29/24 11:48 Oxygen Delivery Method Room Air 10/29/24 11:48 BMI result Body Mass Index 26.8 Assessment & Plan Assessment & Plan (1) Cellulitis: Code(s): L03.90 - Cellulitis, unspecified Qualifiers: Site of cellulitis: extremity Site of cellulitis of extremity: lower extremity Laterality: right Qualified Code(s): L03.115 - Cellulitis of right lower limb Plan: Plan - Initiate treatment with Keflex cephalexin every six hours for seven days to address cellulitis. - Discontinue the use of hydrogen peroxide on the affected area to promote healing. - Prescribed fluconazole to be taken if a yeast infection develops due to antibiotic use. - Advise the patient to keep the area clean and dry, using soap and water for cleansing. Patient was informed and verbally consented to the use of an ambient scribe for clinic note documentation during this visit. Medications: New fluconazole may repeat second dose 72 hrs after first dose if symptoms persist 150 mg PO Q3D 2 tabs 0RF cephalexin 500 mg PO Q6H 28 caps 0RF Coding Level of Care Code Est Pt Level 3 (17784) Diagnoses Cellulitis of right lower extremity L03.115 Site of cellulitis: extremity Site of cellulitis of extremity: lower extremity Laterality: right
[2024-10-29 11:48] VITALS: BP 116/72; PULSE 77; RESP 17; TEMP 36.9; O2SAT 98; BMI 26.8
== END 2024-10-29 12:26 | disposition home or self-care (01) ==
PROVIDERS: PCP Family Medicine; Visit Provider Physician Assistant
DX: L03.115 Cellulitis of right lower limb (principal)

== ENCOUNTER 2024-11-12 15:34 | Outpatient (AMB) | payer BC, SELFPAY ==
[2024-11-12 15:44] VITALS: BP 110/72; PULSE 78; TEMP 36.6; O2SAT 98; BMI 26.5
--- NOTE | 2024-11-12 15:44 | AM.OFFWIN_ITS ---
Intake Vital Signs 11/12/24 15:44 Height 5 ft 5 in Weight 159 lb BMI 26.5 BP 110/72 Blood Pressure Location Lt brachial Position Sitting Pulse 78 Pulse Source Pulse Oximeter Temp 97.9 F Temp Source Oral Pulse Oximetry (%) 98 Intake Visit Reasons: EP Rt ankle bite not better. Patient Tobacco Use Status: Former Tobacco user Allergies No Known Allergies Allergy (Verified 11/12/24 15:45) Do you need a note to return to daycare/school/sports/work: No HPI HPI Comments History of Present Illness Details History of Present Illness - The patient is a 64-year-old female pr esenting with a persistent skin infection - The issue began a couple of weeks ago with what was initially thought to be a bug bite or sting. - The patient experienced significant pa in at the site, leading to the use of antibiotics. - The patient completed a seven-day cour se of Keflex, finishing around the past weekend, but the condition did not improve. - The wound has been described as dripp ing and pretty drippy, with the patient using a Band-Aid to manage the drainage. - The patient has not been using hydroge n peroxide or rubbing alcohol for cleaning, as advised. - The area around the infection is itchy and pink Physical Exam General: Cooperative, healthy appearing, comfortable, no acute distress and well developed Orientation: Patient oriented x3 Limitations: No limitations Head: Normal to inspection Ears: Hearing grossly normal bilaterally Nose: Normal External nose present Face and sinus: Normal facial exam Eyes: Appearance normal, both eyes and all related structures Neck: Normal visual inspection and Yes full ROM Respiratory: Normal respiratory effort and able to speak in complete sentences. Skin: Right LE posterior calf with 1cm area of erythema with weeping of serosanginous fluid, slgiht warmth. Neuro: Patient oriented x3 Extremities: Normal to inspection [facility] Medical History (Updated 10/29/24 @ 11:59 by Elsa Andrea PA-C) GERD (gastroesophageal reflux disease) Surgical History (Updated 03/13/22 @ 14:35 by MAGAN Gibbs) Hx of colonoscopy History of esophagogastroduodenoscopy (EGD) Family History Mother HTN (hypertension) High cholesterol Father HTN (hypertension) High cholesterol Colon cancer, Onset Age: 65 Social History Alcohol intake: current Alcohol intake frequency: a few times a week Alcohol type: beer and wine Patient Tobacco Use Status: Former Tobacco user Tobacco use type: Cigarette Cigarettes Per Day: 6 Years Smoked: 40 Substance Use Type: Marijuana Review of Systems Const All systems reviewed & are unremarkable except as noted in HPI and below Physical Exam Vital Signs: Last Vital Signs Temp 97.9 F 11/12/24 15:44 Pulse 78 11/12/24 15:44 BP 110/72 11/12/24 15:44 Pulse Ox 98 11/12/24 15:44 BMI result Body Mass Index 26.5 Assessment & Plan Assessment & Plan (1) Cellulitis: Code(s): L03.90 - Cellulitis, unspecified Qualifiers: Site of cellulitis: extremity Site of cellulitis of extremity: lower extremity Laterality: right Qualified Code(s): L03.115 - Cellulitis of right lower limb Plan: Patient was informed and verbally consented to the use of an ambient scribe for clinic note documentation during this visit. - Keflex did not work, ? MRSA. - Initiate treatment with doxycycline 100 mg BID for 7 days to cover potential MRSA infection. - Apply mupirocin ointment three times daily to the affected area to maintain moisture and aid in healing. - Advise the patient to cover the wound when in public and leave it open to air at home to facilitate healing. Medications: New doxycycline hyclate 100 mg PO BID 14 tabs 0RF mupirocin 2% 1 appl topical TID 22 grams 0RF Coding Level of Care Code New Pt Level 3 (60809) Diagnoses Cellulitis of right lower extremity L03.115 Site of cellulitis: extremity Site of cellulitis of extremity: lower extremity Laterality: right
--- OUTSIDE RECORDS SUMMARY | 2024-11-12 16:29 | XMS_ITS | Clinical Summary ---
Author Organization [facility] [address] [place] [address] [address] [place] [address] Phone Care Team Providers Care Print Room Worker Name Role Phone Gilmer Casillas MD Primary Care Provider [phone] Surgical History Surgery Date Site/Laterality Comments WISDOM [...] 12/16/2023 8:53 AM EDT Plan of Treatment Upcoming Encounters Date Type Department Care Team (Late st Contact Info) Description 02/24/2025 9:00 AM EST Office Visit Obstetrics and Gynecology [address] [id number] Sheila Holden PA [address] [place] [address] Health Maintenance Due Date Last Done Comments DTaP,Tdap,and Td Vaccines (1 - Tdap) 1981 Cervical Cancer Screening: HPV 1983 Pneumococcal Vaccine: 50+ Years (1 of 1 - PCV) 2012 Cholesterol Screening (Lipid Panel) 02/17/2022 Colorectal Cancer Screening: Colonoscopy 02/17/2022 HIV Screening 02/17/2022 Hepatitis C Screening 02/17/2022 Social Influencers of Health Screening 02/17/2022 Depression Screening 03/11/2024 COVID-19 Vaccine ( season) 2024 03/29/2021, 05/11/2020, 04/20/2020 Influenza Vaccine (#1) 2024 , 02/12/2020, 01/25/2018 Breast Cancer Screening 05/22/2026 05/23/19 25, 12/13/2023, 12/13/2023, Additional history exists RSV Immunization Adult Patients (1 - 1-dose 75+ series) 2037 Zoster Vaccines Completed 01/11/2024, 10/18/2023 HIB Vaccines [...] imaging of breast from Last 3 Months or Most Recently Relevant to Health Maintenance Results * MG Mammo Digital Diagnostic w [facility] bilat (05/22/2024 8:52 AM EDT) Anatomical Region Laterality Modality Breast Bilateral Mammography 05/22/2024 8:59 AM EDT Impressions 05/22/2024 9:04 AM EDT RIGHT BREAST: Grouped calcifications in the lower outer quadrant, similar to June 2023. Probably benign. A 12 month follow-up mammogram is recommended with standard views and spot magnified compression views. LEFT BREAST: Negative, no evidence of malignancy. Normal interval follow-up is recommended in 12 months. Findings and recommendations were conveyed to the patient via laboratory technologist. BREAST DENSITY: C - The breasts are heterogeneously dense which may obscure small masses. BI-RADS CATEGORY: 3 - PROBABLY BENIGN RECOMMENDATION: Mammography: Diagnostic bilateral mammogram recommended in 1 year. Mammo Location: [facility], [address] [place] [address], [id number], . -------- FINAL REPORT -------- Dictated By: Lon Tate Dictated Date: 05/22/2024 08:59 ET Assigned Physician: Lon Tate Reviewed and Electronically Signed By: Lon Tate Signed Date: 05/22/2024 09:04 ET Workstation ID: [id number] Transcribed By: Self Edit Transcribed Date: 05/22/2024 08:59 ET Narrative 05/22/2024 9:04 AM EDT HISTORY: 2nd six-month follow-up of right breast calcifications STUDY: Bilateral diagnostic mammography with tomosynthesis and CAD TECHNIQUE: Bilateral digital diagnostic mammography is obtained and read in conjunction with computer-aided detection. Tomosynthesis as well as 2-D C view imaging were obtained. Spot magnified compression views of the right breast calcifications were also obtained. COMPARISON: Comparison made to multiple prior, most recent December 13, 2023, and most remote January 06, 2014. RIGHT BREAST: Previously described grouped calcifications in the lower outer [...] mammogram recommended in 1 year. Mammo Location: [facility], [address] [place] [address], [id number], . -------- FINAL REPORT -------- Dictated By: Lon Tate Dictated Date: 05/22/2024 08:59 ET Assigned Physician: Lon Tate Reviewed and Electronically Signed By: Lon Tate Signed Date: 05/22/2024 09:04 ET Workstation ID: [id number] Transcribed By: Self Edit Transcribed Date: 05/22/2024 08:59 ET Gilmer Casillas MD IMG BI PROCEDURES Final Result from Last 3 Months or Most Recently Relevant to Health Maintenance Insurance [facility] Care Teams Print Room Worker Relationship Specialty Start Date End Date Gilmer Casillas MD [address] [place] [address] [place] [address] PCP - General Internal Medicine 09/16/13
== END 2024-11-12 17:05 | disposition home or self-care (01) ==
PROVIDERS: PCP Family Medicine; Visit Provider Physician Assistant
DX: L03.115 Cellulitis of right lower limb (principal)

== ENCOUNTER 2024-12-03 09:20 | Outpatient (AMB) | payer BC, SELFPAY ==
--- NOTE | 2024-12-03 09:21 | A.OFFPC_ITS ---
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 Required: No Accompanied by: Self / Same As Patient Allergies No Known Allergies Allergy (Verified 12/03/24 09:21) Medication List - Last Reconciled 12/03/24 by Ti Cee MD B-complex with vitamin C 1 cap PO DAILY cetirizine (Zyrtec) 10 mg PO DAILY PRN fluticasone propionate 50 mcg/actuation 1 spray intranasal DAILY magnesium 200 mg PO DAILY multivitamin 1 tab PO DAILY omeprazole 20 mg PO DAILY tramadol 1 tab PO Q8H PRN Tobacco use date assessed: 12/03/24 Dental Screening Dental Screen Date: 12/03/24 Did you have a dental visit in the last 12 months?: Yes Did you have a dental problem in the last 6 months where you did not have access to dental care?: No Was dental information given to patient?: Patient has dentist HPI HPI Comments History of Present Illness Details The patient is a 64-year-old female presenting with forearm pain. The pain started approximately two weeks ago and has been progressively worsening. The patient reports an incident where she bumped her arm, and her dog pulled on the leash, exacerbating the pain. She describes the pain as severe, with a rating of 7-8 out of 10, primarily located in the forearm with mild pain radiating to the back of her arm. The patient has not taken any oral medications, such as ibuprofen or Tylenol, for the pain but has used topical analgesics, which provided some relief, though the area remains sore. She has a background of high cholesterol, seasonal allergies managed with daily Zyrtec and nasal spray, and GERD managed with omeprazole. Previously, she had cellulitis but reports it has resolved. The patient has a history of smoking, which she quit approximately five years ago after smoking five cigarettes daily for about 30-40 years. She also consumes alcohol occasionally. Her brother and father had bladder cancer, and her father underwent a triple bypass surgery at the age of 65. 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 - Housing: Stable - Smoking: Former smoker, quit at age 59 - Alcohol: Occasional consumption - Regular mammograms and pap smears repo rted [facility], [facility] Medical History (Updated 12/03/24 @ 09:49 by Ti Cee MD) Tobacco use disorder Neuropathy Establishing care with new doctor, encounter for GERD (gastroesophageal reflux disease) Surgical History (Updated 03/13/22 @ 14:35 by MAGAN Gibbs) Hx of colonoscopy History of esophagogastroduodenoscopy (EGD) Family History Mother HTN (hypertension) High cholesterol Father HTN (hypertension) High cholesterol Colon cancer, Onset Age: 65 Social History Housing: House Alcohol intake: current Alcohol intake frequency: a few times a week Alcohol type: beer and wine Patient Tobacco Use Status: Former Tobacco user Tobacco use type: Cigarette Cigarettes Per Day: 6 Years Smoked: 40 Packs per year/per ci.00 e-Cigarette/Vaping Use: Never Used Substance Use Type: Marijuana service: No Current occupational status: employed Current occupation: [employer] for son and jo Questionnaire PHQ-9 Over the last 2 weeks, how often have you been bothered by any of the following problems? 1. Little interest or pleasure in doing things: not at all 2. Feeling down, depressed, or hopeless: not at all 3. Trouble falling or staying asleep, or sleeping too much: not at all 4. Feeling tired or having little energy: not at all 5. Poor appetite or overeating: not at all 6. Feeling bad about yourself - or that you are a failure or have let yourself or your family down: not at all 7. Trouble concentrating on things, such as reading the newspaper or watching television: not at all 8. Moving or speaking so slowly that other people could have noticed. Or the opp osite - being so fidgety or restless that you have been moving around a lot more than usual: not at all 9. Thoughts that you would be better off or of hurting yourself in some way: not at all Total score: 0 Depression Screening Interpretation: Negative Depression Screening Done: Yes 36807 - PHQ-9 Billing: Yes Source: Developed by Drs. Darwin Duff, Selma Bernal, Rei Blanton and colleagues, with an educational estrada from [employer]. Thrive Questionnaire Date Thrive assessed: 12/03/24 I am a: Patient What is your living situation today?: I have a steady place to live Within the past 12 months, did the food you bought not last and you didn't have the money to get more?: Never true Within the past 12 months, did you worry whether your food would run out before you got money to buy more?: Never true Do you have trouble paying for medicines?: No Do you have trouble getting transportation to medical appointments?: No Do you have trouble paying your heating and electricity bill?: No Do you have trouble taking care of your child, family member or friend?: No Do you have trouble with day-to-day activities such as bathing, preparing meals, shopping, managing finances, etc.?: No Are you currently unemployed and looking for a job?: No Are you interested in more education?: No THRIVE Score: 0 AUDIT C Alcohol Use Questionnaire (AUDIT-C) 1. How often do you have a drink containing alcohol?: 2-4 times a month 2. How many drinks containing alcohol do you have on a typical day when you are drinking?: 1 or 2 Total Score: 2 Score Reviewed/Action Taken: No JANE-7 AMB Questionnaire JANE-7 Date JANE - 7 assessed: 12/03/24 Feeling nervous, anxious, or on edge: 0 = Not at all Not being able to stop or control worryin = Not at all Worrying too much about different things: 0 = Not at all Trouble relaxin = Not at all Being so restless that it is hard to sit still: 0 = Not at all Becoming easily annoyed or irritable: 0 = Not at all Feeling afraid as if something awful might happen: 0 = Not at all Total JANE-7 score (0-4 normal; 5-9 mild; 10-14 moderate; 15-21 severe): 0 Source: Developed by Drs. Darwin Duff, Selma Bernal, Rei Blanton and colleagues, with an educational estrada from [employer]. JANE-7 Assessment Billing JANE-7 Assessment Tool: JANE-7 Assessment 74327 Review of Systems Const Details: - Musculoskeletal: Reports forearm pain - Neurological: Denies numbness or weakness - Mental health: Denies depression; reports occasional anxiety - Respiratory: Denies shortness of breath or lung cancer screenings All systems reviewed & are unremarkable except as reviewed in HPI and above Physical exam (Primary Care) Vital Signs: Last Vital Signs Temp 97.9 F 12/03/24 09:28 Pulse 89 12/03/24 09:28 Resp 18 12/03/24 09:28 BP 118/76 12/03/24 09:28 Pulse Ox 98 12/03/24 09:28 Oxygen Delivery Method Room Air 12/03/24 09:28 BMI result Body Mass Index 26.5 Tobacco/Smoking Status: Tobacco use Status Tobacco use date assessed 12/03/24 12/03/24 09:31 Patient Tobacco Use Status Former Tobacco user 12/03/24 09:31 Tobacco use type Cigarette 12/03/24 09:31 e-Cigarette/Vaping Use Never Used 12/03/24 09:31 Depression Screening Interpretation: Negative Const Other: General: +Alert and oriented, Well nourished, No acute distress. Eye: Pupils are equal, round and reactive to light, Intact accommodation, Extraocular movements are intact, Normal conjunctiva, Vision unchanged. HENT: Normocephalic, Atraumatic, Tympanic membranes are clear, Normal hearing, Oral mucosa is moist, No pharyngeal erythema, Ear canals patent. Respiratory: Lungs CTA bilaterally, No wheeze, Respirations are non-labored. Cardiovascular: Regular rate, Regular rhythm, S1 auscultated, S2 auscultated, No murmur, Good pulses equal in all extremities, Normal peripheral perfusion, No edema. Gastrointestinal: Soft, Non-tender, Non-distended, Normal bowel sounds, No organomegaly. Musculoskeletal: Normal range of motion, Normal strength, Tenderness in the forearm and back of the arm, No swelling, No deformity, Normal gait. Integumentary: Warm, Dry, [place], Intact, Healing area on the back from previous cellulitis infection. Neurologic: Alert, Oriented, Normal sensory, Normal motor function, No focal defects, Cranial Nerves II-XII are grossly intact, Normal deep tendon reflexes. Psychiatric: Cooperative, Appropriate mood & affect, Normal judgment, Reports occasional anxiety. Coding Level of Care Code Est Pt Level 4 (22771) Complex EM visit Add On G2211 Diagnoses Neuropathy G62.9 Cellulitis of right lower extremity L03.115 Laterality: right Site of cellulitis: extremity Site of cellulitis of extremity: lower extremity Tobacco use disorder F17.200 Additional Codes PHQ-9 - 45690 - PHQ-9 Billing: Yes ([id number]) JANE-7 Assessment Billing - JANE-7 Assessment Tool: JANE-7 Assessment 54755 ([id number]) Assessment & Plan Assessment & Plan (1) Neuropathy: Comment: - Optimization of gabapentin dosage; adjusting to 300 mg in the morning and 600 mg at night to improve symptom management and reduce tramadol use. Code(s): G62.9 - Polyneuropathy, unspecified Category: Medical (2) Cellulitis: Comment: - Continue to monitor symptoms. - Improvement in lesion on the back of lower leg Code(s): L03.90 - Cellulitis, unspecified Category: Medical Qualifiers: Laterality: right Site of cellulitis: extremity Site of cellulitis of extremity: lower extremity Qualified Code(s): L03.115 - Cellulitis of right lower limb (3) Tobacco use disorder: Comment: - Over 15 pack smoking history, quit 5 years ago (Started at age of 24 quit at 59) - Lung Cancer Screening Ordered Code(s): F17.200 - Nicotine dependence, unspecified, uncomplicated Category: Medical Plan: Health Maintenance: - Scheduled low-dose CT scan for lung cancer screening due to smoking history. - Regular mammogram and pap smear reports acknowledged. - Routine blood work ordered to monitor cholesterol, thyroid, and vitamin levels. Patient was informed and verbally consented to the use of an ambient scribe for clinic note documentation during this visit. Plan The patient's forearm pain is suspected to be related to musculoskeletal issues due to a recent physical incident, and conservative management with analgesics is recommended, avoiding tramadol. For neuropathy, adjusting gabapentin dosing to improve symptom control and limit tramadol use was discussed, emphasizing the importance of monitoring adverse effects. Continued management of seasonal allergies and GERD symptoms with medications was recommended. Considering her prior smoking history, recommending a low-dose CT scan was important to screen for lung cancer preemptively. A new medication schedule was proposed and consent obtained, emphasizing minimizing adverse effects while enhancing efficacy. Regular mammograms, Pap smears, and cholesterol monitoring tests were advised. Orders: Orders Comprehensive Met. Panel Today Z76.89 - Persons encountering health services in other specified circumstances Hemoglobin A1c Today Z76.89 - Persons encountering health services in other specified circumstances TSH reflex Free T4 Today Z76.89 - Persons encountering health services in other specified circumstances Complete Blood Count Auto Diff Today Z76.89 - Persons encountering health services in other specified circumstances Lipid Panel Today Z76.89 - Persons encountering health services in other specified circumstances Vitamin D 25-OH Total Today Z76.89 - Persons encountering health services in other specified circumstances Referrals Lung Cancer Screening Referral F17.200 - Nicotine dependence, unspecified, uncomplicated Medications: New gabapentin 300 AM & 600 MG QPM 300 mg PO TID 270 caps 0RF 90 days Patient Instructions: - Use ibuprofen or Tylenol for your forearm pain if needed. - Continue using gabapentin as 300 mg in the morning and 600 mg at night. - Keep taking your Zyrtec, nasal spray, and omeprazole daily. - Monitor for any changes or worsening symptoms once you start the adjusted gabapentin regimen. - Get the low-dose CT scan scheduled for lung cancer screening. - Keep up with your routine mammograms and Pap smears. - Follow a healthy lifestyle and diet to manage your cholesterol.
[2024-12-03 09:28] VITALS: BP 118/76; PULSE 89; RESP 18; TEMP 36.6; O2SAT 98; BMI 26.5
--- OUTSIDE RECORDS SUMMARY | 2024-12-03 10:22 | XMS_ITS | Clinical Summary ---
Author Organization [facility] [address] [place] [address] Address [address] [place] [address] Phone Care Team Providers Care Field Insurance Sales Manager Name Role Phone Gilmer Casillas MD Primary Care Provider [phone] Surgical History Surgery Date Site/Laterality Comments WISDOM [...] AM EST Office Visit Obstetrics and Gynecology [address] [address] Sheila Holden PA [address] [place] [address] Health Maintenance Due Date Last Done Comments [...] recommendations were conveyed to the patient via instructional technologist. BREAST DENSITY: C - The breasts are heterogeneously dense which may obscure small masses. BI-RADS CATEGORY: 3 - PROBABLY BENIGN RECOMMENDATION: Mammography: Diagnostic bilateral mammogram recommended in 1 year. Mammo Location: [facility], [address] [place] [address], [id number], . -------- FINAL REPORT -------- Dictated By: Lon Tate Dictated Date: 05/22/2024 08:59 ET Assigned Physician: Lon Tate Reviewed and Electronically Signed By: Lon Tate Signed Date: 05/22/2024 09:04 ET Workstation ID: [id number] Transcribed By: Self Edit Transcribed Date: 05/22/2024 [...] mammogram recommended in 1 year. Mammo Location: [facility], [address] [place] [address], [id number], . -------- FINAL REPORT -------- Dictated By: Lon Tate Dictated Date: 05/22/2024 08:59 ET Assigned Physician: Lon Tate Reviewed and Electronically Signed By: Lon Tate Signed Date: 05/22/2024 09:04 ET Workstation ID: [id number] Transcribed By: Self Edit Transcribed Date: 05/22/2024 08:59 ET Gilmer Casillas MD IMG BI PROCEDURES Final Result from Last 3 Months or Most Recently Relevant to Health Maintenance Insurance [facility] Care Teams Field Insurance Sales Manager Relationship Specialty Start Date End Date Gilmer Casillas MD [address] [place] [address] [place] [id number] PCP - General Internal Medicine 09/16/13
== END 2024-12-03 09:50 | disposition home or self-care (01) ==
PROVIDERS: PCP Student in an Organized Health Care Education/Training Program; Visit Provider Student in an Organized Health Care Education/Training Program
DX: G62.9 Polyneuropathy, unspecified (principal); L03.115 Cellulitis of right lower limb; F17.200 Nicotine dependence, unspecified, uncomplicated

== ENCOUNTER → 2024-12-03 09:20 | Outpatient (BNVA) | payer BC, SELFPAY | PROVIDERS: PCP Family Medicine; Visit Provider Student in an Organized Health Care Education/Training Program | DX: G62.9 Polyneuropathy, unspecified (principal); K21.9 Gastro-esophageal reflux disease without esophagitis; Z87.891 Personal history of nicotine dependence; Z13.31 Encounter for screening for depression; Z13.39 Encounter for screening examination for other mental health and behavioral disorders | CPT/HCPCS: 96127 ==

== ENCOUNTER 2024-12-03 10:11 | Outpatient (REF) | payer BC, SELFPAY ==
[2024-12-03 12:33] LABS: MANUAL DIFF FLAG NO
[2024-12-03 12:35] LABS: Hematocrit 37.8 % (37.0-47.0); Hemoglobin 13.2 g/dl (12.0-16.0); Imm Gran Abs Auto 0.01 X10*3/uL (0.00-0.03); Imm Gran Pct Auto 0.2 % (0.0-0.4); Lymphocytes Absolute Auto 2.7 X10*3/uL (1.2-4.9); Mean Corpuscular HGB Conc 34.9 g/dl (31.0-35.0); Mean Corpuscular Hemoglobin 33.2 pg (27.0-33.0); Mean Corpuscular Volume 95.2 fL (80.0-98.0); NRBC Abs Auto 0.000 X10*3/uL (0.0-0.012); NRBC Pct Auto 0.0 /100WBC (0.0-0.2); Platelet Count 219 X10*3/uL (160-400); Red Blood Count 3.97 X10*6/uL (4.20-5.50); White Blood Count 5.9 X10*3/uL (4.8-10.8)
[2024-12-03 13:03] LABS: Hemoglobin A1C 110.8834 umol/L; Total Hemoglobin (HGBA1C) 3367.4809 umol/L
[2024-12-03 13:23] LABS: Alanine Aminotransferase 28 U/L (0-31); Albumin Level 4.1 g/dL (3.5-5.0); Alkaline Phosphatase 82 U/L (39-117); Anion Gap 11 (12-20); Aspartate Amino Transferase 35 U/L (5-31); Blood Urea Nitrogen 13 mg/dL (9-16); Calcium 8.7 mg/dL (8.4-10.2); Carbon Dioxide 25 mmol/L (22-29); Chloride 108 mmol/L (96-108); Cholesterol 431 mg/dL (<200); Estimated Glomerular Filt Rate > 60; HDL Cholesterol 42 mg/dL (>40); Potassium 4.1 mmol/L (3.3-5.1); Sodium 140 mmol/L (135-145); Total Protein 6.7 g/dL (6.5-8.0); Triglycerides 1490 mg/dL (<150)
== END 2024-12-03 10:12 | disposition home or self-care (01) ==
LOC: HO.10HDL 10:11
PROVIDERS: Visit Provider Student in an Organized Health Care Education/Training Program
DX: Z13.1 Encounter for screening for diabetes mellitus (principal); Z13.6 Encounter for screening for cardiovascular disorders; Z76.89 Persons encountering health services in other specified circumstances
CPT/HCPCS: 36415; 80053; 80061; 82306; 83036; 84443; 85025

== ENCOUNTER 2024-12-04 08:22 | Outpatient (REF) | payer BC, SELFPAY ==
--- OUTSIDE RECORDS SUMMARY | 2024-12-04 08:44 | XMS_ITS | Clinical Summary ---
Author Organization [facility] [address] [place] [address] Address [address] [place], [place] Phone Care Team Providers Care Road Mechanic Name Role Phone Gilmer Casillas MD Primary Care Provider [phone] Surgical History Surgery Date Site/Laterality Comments WISDOM [...] AM EST Office Visit Obstetrics and Gynecology [address] [address] Sheila Holden PA [address] [place] [address] Health Maintenance Due Date Last Done Comments [...] recommendations were conveyed to the patient via registered vascular technologist (rvt). BREAST DENSITY: C - The breasts are heterogeneously dense which may obscure small masses. BI-RADS CATEGORY: 3 - PROBABLY BENIGN RECOMMENDATION: Mammography: Diagnostic bilateral mammogram recommended in 1 year. Mammo Location: [facility], [address] [place] [address], [id number], . -------- FINAL REPORT -------- Dictated By: Lon Tate Dictated Date: 05/22/2024 08:59 ET Assigned Physician: Lon Tate Reviewed and Electronically Signed By: Lon Tate Signed Date: 05/22/2024 09:04 ET Workstation ID: [id number] Transcribed By: Self Edit Transcribed Date: 05/22/2024 [...] mammogram recommended in 1 year. Mammo Location: [facility], [address] [place] [address], [address], . -------- FINAL REPORT -------- Dictated By: Lon Tate Dictated Date: 05/22/2024 08:59 ET Assigned Physician: Lon Tate Reviewed and Electronically Signed By: Lon Tate Signed Date: 05/22/2024 09:04 ET Workstation ID: [id number] Transcribed By: Self Edit Transcribed Date: 05/22/2024 08:59 ET Gilmer Casillas MD IMG BI PROCEDURES Final Result from Last 3 Months or Most Recently Relevant to Health Maintenance Insurance [facility] Care Teams Road Mechanic Relationship Specialty Start Date End Date Gilmer Casillas MD [address] [place] [address] [place] [id number] PCP - General Internal Medicine 09/16/13
[2024-12-04 11:21] LABS: Cholesterol 470 mg/dL (<200); HDL Cholesterol 44 mg/dL (>40); Triglycerides 1615 mg/dL (<150)
== END 2024-12-04 08:23 | disposition home or self-care (01) ==
LOC: HO.HMGCLDS 08:22
PROVIDERS: PCP Student in an Organized Health Care Education/Training Program; Visit Provider Student in an Organized Health Care Education/Training Program
DX: E78.5 Hyperlipidemia, unspecified (principal); E78.1 Pure hyperglyceridemia
CPT/HCPCS: 36415; 80061; 82172

== ENCOUNTER 2025-03-08 10:10 | Outpatient (AMB) | payer BC, SELFPAY ==
[2025-03-08 10:21] VITALS: BP 98/64; PULSE 66; RESP 16; TEMP 36; BMI 23.4
--- NOTE | 2025-03-08 10:21 | A.OFFPC_ITS ---
Vital Signs 03/08/25 10:21 Height 5 ft 5 in Weight 140 lb 6 oz BMI 23.4 BP 98/64 Blood Pressure Location Rt brachial Position Sitting Respiration 16 Pulse 66 Pulse Source Palpation Temp 96.8 F Temp Source Temporal Artery Scan Intake Visit Reasons: 3 Month F/U Statement Clerks Manager Required: No Accompanied by: Self / Same As Patient Allergies No Known Allergies Allergy (Verified 03/08/25 10:21) Medication List - Last Reconciled 03/08/25 by Ti Cee MD B-complex with vitamin C 1 cap PO DAILY cetirizine (Zyrtec) 10 mg PO DAILY PRN fenofibrate 160 mg PO DAILY 90 days fluticasone propionate 50 mcg/actuation 1 spray intranasal DAILY gabapentin 300 mg PO TID 90 days magnesium 200 mg PO DAILY multivitamin 1 tab PO DAILY omeprazole 20 mg PO DAILY rosuvastatin 20 mg PO DAILY 90 days Tobacco use date assessed: 12/03/24 Dental Screening Dental Screen Date: 12/03/24 HPI HPI Comments History of Present Illness Details History of Present Illness The patient is a 64-year-old female presenting for a follow-up on severe hypertriglyceridemia and hypercholesterolemia. Her last blood work showed triglycerides in the 1600s, where the normal range is under 150, and she has a history of triglycerides as high as 938 in the past. Her total cholesterol was also noted to be very high. She has been taking rosuvastatin 20 mg and fenofibrate 160 mg for the past three months to manage her lipid levels. She also reports intermittent abdominal pain that has not improved with medication. The patient has a history of smoking for many years, and a lung cancer screening has been recommended, but she has not yet scheduled it. She reports having red uced her intake of high-fat foods, including processed foods, oils, butters, cheese, and egg yolks. Medical History: - Severe hypertriglyceridemia - Hypercholesterolemia - Allergies - Chronic pain - History of tobacco use Medications: - Rosuvastatin 20 mg for hyperlipidemia - Fenofibrate 160 mg for hyperlipidemia - Zyrtec as needed for allergies - Gabapentin 300 mg three times daily fo r pain - Multivitamins - Magnesium Diagnostic Results: - Labs: - Her most recent triglycerides were in the 1600s, with a history of levels as high as 938. - Her total cholesterol was very high. - Previous blood work showed good blood counts, kidney function, and glucose levels. Social History - Tobacco use: Patient has a history of smoking for many years. - Nutrition: She reports having stopped eating foods high in fat, such as processed foods, oils, butters, cheese, and egg yolks. [facility] Medical History (Updated 03/08/25 @ 10:43 by Ti Cee MD) Abdominal pain Mammogram abnormal Hypertriglyceridemia Hyperlipidemia Tobacco use disorder Neuropathy Establishing care with new doctor, encounter for GERD (gastroesophageal reflux disease) Surgical History (Updated 03/13/22 @ 14:35 by MAGAN Gibbs) Hx of colonoscopy History of esophagogastroduodenoscopy (EGD) Family History Mother HTN (hypertension) High cholesterol Father HTN (hypertension) High cholesterol Colon cancer, Onset Age: 65 Social History Housing: House Alcohol intake: current Alcohol intake frequency: a few times a week Alcohol type: beer and wine Patient Tobacco Use Status: Former Tobacco user Tobacco use type: Cigarette Cigarettes Per Day: 6 Years Smoked: 40 e-Cigarette/Vaping Use: Never Used Substance Use Type: Marijuana service: No Current occupational status: employed 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 How often do you have a drink containing alcohol?: Monthly or less 2. How many drinks containing alcohol do you have on a typical day when you are drinking?: 1 or 2 3. How often do you have six or more drinks on one occasion?: Never Total Score: 1 JANE-7 AMB Questionnaire JANE-7 Date JANE - 7 assessed: 12/03/24 Source: Developed by Drs. Darwin Duff, Selma Bernal, Rei Blanton and colleagues, with an educational estrada from [employer]. Review of Systems Narrative Review of Systems - General: Reports generalized aches and pains. - Gastrointestinal: Reports intermittent abdominal pain. Denies nausea and vomiting. Reports normal urination and defecation. - Cardiovascular: Denies chest pain. - Respiratory: Denies shortness of breath. - Neurological: Denies headaches. - Eyes: Denies vision changes. All systems reviewed & are unremarkable except as reviewed in HPI and above Physical exam (Primary Care) Vital Signs: Last Vital Signs Temp 96.8 F 03/08/25 10:21 Pulse 66 03/08/25 10:21 Resp 16 03/08/25 10:21 BP 98/64 03/08/25 10:21 Care Plan Goal for BP management: Stable BMI result Body Mass Index 23.4 Tobacco/Smoking Status: Tobacco use Status Tobacco use date assessed 12/03/24 03/08/25 10:26 Patient Tobacco Use Status Former Tobacco user 03/08/25 10:26 Tobacco use type Cigarette 03/08/25 10:26 e-Cigarette/Vaping Use Never Used 03/08/25 10:26 Thrive Assessment: Date of Thrive Assessment Date Thrive assessed 12/03/24 03/08/25 10:26 Narrative Physical Exam General: Alert and oriented, Well nourished, No acute distress. Eye: Pupils are equal, round and reactive to light, Intact accommodation, Extraocular movements are intact, Normal conjunctiva, Vision unchanged. HENT: Normocephalic, Atraumatic, Tympanic membranes are clear, Normal hearing, Oral mucosa is moist, No pharyngeal erythema, Ear canals patent. Respiratory: Lungs CTA bilaterally, No wheeze, Respirations are non-labored. Cardiovascular: Regular rate, Regular rhythm, S1 auscultated, S2 auscultated, No murmur, Good pulses equal in all extremities, Normal peripheral perfusion, No edema. Gastrointestinal: Soft, Non-tender, Non-distended, Normal bowel sounds, No organomegaly. Musculoskeletal: Normal range of motion, Normal strength, No tenderness, No swelling, No deformity, Normal gait. Integumentary: Warm, Dry, [place], Intact. Neurologic: Alert, Oriented, Normal sensory, Normal motor function, No focal defects, Cranial Nerves II-XII are grossly intact, Normal deep tendon reflexes. Psychiatric: Cooperative, Appropriate mood & affect, Normal judgment. Coding Level of Care Code Est Pt Level 4 (45497) Add On Problem Visit Only Diagnoses Hypertriglyceridemia E78.1 Neuropathy G62.9 Tobacco use disorder F17.200 Generalized abdominal pain R10.84 Abdominal location: generalized Assessment & Plan Assessment & Plan (1) Hypertriglyceridemia: Comment: - The patient's triglyceride levels are markedly elevated at 1600s, despite being on rosuvastatin and fenofibrate for 3 months. - This poses a significant risk for developing pancreatitis. - The plan is to repeat a lipid panel today. - If the levels have not improved significantly, a referral to a silk washing machine operator will be made for specialized lipid management, which may include injectable medications. - She will continue her current medications in the meantime. Code(s): E78.1 - Pure hyperglyceridemia Category: Medical (2) Neuropathy: Comment: - Optimization of gabapentin dosage; adjusting to 300 mg to three times a day - Stable Code(s): G62.9 - Polyneuropathy, unspecified Category: Medical (3) Tobacco use disorder: Comment: - Over 15 pack smoking history, quit 5 years ago (Started at age of 24 quit at 59) - Lung Cancer Screening Ordered Code(s): F17.200 - Nicotine dependence, unspecified, uncomplicated Category: Medical (4) Abdominal pain: Comment: - The patient reports ongoing intermittent abdominal pain that has not responded to medication. - The etiology is unclear, but pancreatitis secondary to severe hypertriglyceridemia is a primary concern. - Further evaluation will be guided by the results of the lipid panel. Code(s): R10.9 - Unspecified abdominal pain Category: Medical Qualifiers: Abdominal location: generalized Qualified Code(s): R10.84 - Generalized abdominal pain Plan: Health Maintenance: - Lipid management: The patient is currently on rosuvastatin 20 mg and fenofibrate 160 mg to lower her very high cholesterol and triglycerides and reduce her cardiovascular risk. - Lung cancer screening: Due to a significant smoking history, a lung cancer screening has been ordered and the patient was strongly urged to schedule and complete it for prevention and early detection. - Diet: The patient reports adherence to a low-fat diet, avoiding processed foods, oils, butters, cheese, and egg yolks to help manage her cholesterol. - Follow-up care: A follow-up appointment is scheduled in 3 months to review lab results and monitor her condition. Patient was informed and verbally consented to the use of an ambient scribe for clinic note documentation during this visit. Plan I discussed with the patient that her triglyceride levels are dangerously high, in the 1600s, despite being on medication for three months. I explained the significant risk this poses for developing pancreatitis, which could be related to her abdominal pain. I have ordered repeat blood work for today to re-evaluate her lipid levels. I informed her that if the levels do not improve, I will refer her to a flight operations specialist for further management, which could include injectable medications. We also reviewed the importance of completing her lung cancer screening due to her smoking history, and I strongly encouraged her to schedule this. She will continue her current medications and follow up with me in three months. Orders: Orders Lipid Panel Today E78.1 - Pure hyperglyceridemia, E78.5 - Hyperlipidemia, unspecified LDL Cholesterol Direct Today E78.1 - Pure hyperglyceridemia, E78.5 - Hyperlipidemia, unspecified Apolipoprotein B Today E78.1 - Pure hyperglyceridemia, E78.5 - Hyperlipidemia, unspecified Apolipoprotein A1 Today E78.1 - Pure hyperglyceridemia, E78.5 - Hyperlipidemia, unspecified Patient Instructions: - Go to the lab across the [place] today to have your blood drawn to check your cholesterol levels. - Continue taking your rosuvastatin, fenofibrate, gabapentin, multivitamins, and magnesium as prescribed. - Do not start any new medications or supplements, including calcium, at this time. - It is very important that you call and schedule your lung cancer screening. - Continue with your healthy diet, avoiding foods high in fat. - Schedule a follow-up appointment at the front end alignment specialist for three months from now (May).
--- OUTSIDE RECORDS SUMMARY | 2025-03-08 11:24 | XMS_ITS | Clinical Summary ---
Author Organization [facility] [address] [place] [address] [place] [phone] Phone Care Team Providers Care Assistant Director Of Financial Aid Name Role Phone Gilmer Casillas MD Primary Care Provider [phone] Allergies No known active allergies Medications fenofibrate (LOFIBRA) 160 mg tablet Take 1 tablet (160 mg total) by mouth 1 (one) time each day. 12/04/2024 Active gabapentin (NEURONTIN) 300 mg capsule TAKE 1 CAPSULE BY MOUTH EVERY MORNING & TAKE 2 CAPSULES EVERY EVENING Active gabapentin (NEURONTIN) 600 mg tablet TAKE 1 TABLET BY MOUTH AT BEDTIME DIRECTED WITH 300MG - TOTAL DOSE 900MG 10/19/2024 Active omeprazole (PriLOSEC) [address] capsule Take 1 capsule (20 mg total) by mouth. Active rosuvastatin (CRESTOR) 20 mg tablet Take 1 tablet (20 mg total) by mouth 1 (one) time each day. for 90 days 12/04/2024 Active Encounters Date Type Department Care Team Description 02/19/2025 9:00 AM EST Office Visit Obstetrics and Gynecology - [address] [phone] Alta Samuels CNM Encounter for gynecological examination without abnormal finding (Primary Dx) from Last 3 Months Surgical History Surgery [...] Date Smoking Tobacco: Never Smokeless Tobacco: Never Tobacco Cessation:Counseling Given: Not Answered Alcohol Use Standard Drinks/Week Comments Yes 0 (1 standard drink = 0.6 oz pur e alcohol) Comments No Sex and Gender Information Value Date Recorded [...] Sign Reading Time Taken Comments Blood Pressure 113/65 02/19/2025 9:06 AM EST Pulse 75 02/19/2025 9:06 AM EST Temperature - - Respiratory Rate - - Oxygen Saturation - - Inhaled Oxygen Concentration - - Weight 64.4 kg (142 lb) 02/19/2025 9:06 AM EST Height 165.1 cm (5' 5 ) 02/19/2025 9:06 AM EST Body Mass Index 23.63 02/19/2025 9:06 AM EST Plan of Treatment Upcoming Encounters Date Type Department Care Team (Late st Contact Info) Description 05/17/2025 9:00 AM EDT Appointment Radiology Department [address] [phone] Health Maintenance Due Date Last Done Comments Colorectal Cancer Screening: Colonoscopy 1962 DTaP,Tdap,and Td Vaccines (1 - Tdap) 1981 Cervical Cancer Screening: HPV 1983 Pneumococcal Vaccine: 50+ Years (1 of 1 - PCV) 2012 Cholesterol Screening (Lipid Panel) 02/17/2022 HIV Screening 02/17/2022 Hepatitis C Screening [...] recommendations were conveyed to the patient via production control technologist. BREAST DENSITY: C - The breasts are heterogeneously dense which may obscure small masses. BI-RADS CATEGORY: 3 - PROBABLY BENIGN RECOMMENDATION: Mammography: Diagnostic bilateral mammogram recommended in 1 year. Mammo Location: [facility], [address] [place] [address], [id number], . -------- FINAL REPORT -------- Dictated By: Lon Tate Dictated Date: 05/22/2024 08:59 ET Assigned Physician: Lon Tate Reviewed and Electronically Signed By: Lon Tate Signed Date: 05/22/2024 09:04 ET Workstation ID: [id number] Transcribed By: Self Edit Transcribed Date: 05/22/2024 [...] mammogram recommended in 1 year. Mammo Location: [facility], [address] [place] [address], [id number], . -------- FINAL REPORT -------- Dictated By: Lon Tate Dictated Date: 05/22/2024 08:59 ET Assigned Physician: Lon Tate Reviewed and Electronically Signed By: Lon Tate Signed Date: 05/22/2024 09:04 ET Workstation ID: [id number] Transcribed By: Self Edit Transcribed Date: 05/22/2024 08:59 ET Gilmer Casillas MD IMG BI PROCEDURES Final Result from Last 3 Months or Most Recently Relevant to Health Maintenance Insurance [facility] Care Teams Assistant Director Of Financial Aid Relationship Specialty Start Date End Date Gilmer Casillas MD [address] [place] [address] [place] [id number] PCP - General Internal Medicine 09/16/13
== END 2025-03-08 10:39 | disposition home or self-care (01) ==
LOC: HO.HMCHD 10:10
PROVIDERS: PCP Student in an Organized Health Care Education/Training Program; Visit Provider Student in an Organized Health Care Education/Training Program
DX: E78.1 Pure hyperglyceridemia (principal); G62.9 Polyneuropathy, unspecified; F17.200 Nicotine dependence, unspecified, uncomplicated; R10.84 Generalized abdominal pain

== ENCOUNTER 2025-03-08 10:10 | Outpatient (REF) | payer BC, SELFPAY ==
[2025-03-08 13:32] LABS: Cholesterol 151 mg/dL (<200); HDL Cholesterol 61 mg/dL (>40); Triglycerides 98 mg/dL (<150)
== END 2025-03-08 10:11 | disposition home or self-care (01) ==
LOC: HO.10HDL 10:10
PROVIDERS: PCP Student in an Organized Health Care Education/Training Program; Visit Provider Student in an Organized Health Care Education/Training Program
DX: E78.1 Pure hyperglyceridemia (principal); E78.5 Hyperlipidemia, unspecified
CPT/HCPCS: 36415; 80061; 82172; 83721